=== PATIENT | male | born 2000 ===

== ENCOUNTER 2021-03-25 19:57 | Emergency (ER) | payer BC ==
[~2021-03-25] VITALS: Ht 182.9 cm; Wt 76.3 kg
--- NOTE | 2021-03-25 21:01 | NUR ---
First contact with patient: Patient presents to ER c/o posterior head pain. Patient states it started this morning around 0300. He went back to sleep and woke up again at 1200 and the pain was still there. Patient also c/o a bump on the back of the head. Denies injury. Patient is in NAD. REspirations even and unlabored.
--- NOTE | 2021-03-25 21:03 | NUR ---
Patient denies blurry vision or dizziness.
[2021-03-25 21:07] VITALS: BP 129/82
== END 2021-03-25 22:07 | disposition home or self-care (01) ==
LOC: ED 21:52
DX: L73.8 Other specified follicular disorders (principal); R51.9 Headache, unspecified
CPT/HCPCS: 99283